=== PATIENT | female | born 1950 | race Caucasian/White ===

== ENCOUNTER 2018-08-31 15:18 | Outpatient (CLI) | payer MEDICARE, OTHER ==
--- NOTE | 2018-09-14 06:09 | Mammography Report ---
Reason: screening mammo Procedure Date: 08/31/2018 Accession Number: [id number] / [id number] Procedure: MGN - Screening Mammo Dig Bilat CPT Code: FULL RESULT: EXAM: Screening Mammo Dig Bilat DATE: 08/31/2018 3:36 PM CLINICAL HISTORY: Screening encounter. Family history of breast cancer in a grandmother at the age of 45. History of benign left breast biopsy. TECHNIQUE: Bilateral CC and MLO views were obtained. COMPARISON: 11/13/2013 through 09/06/2010. FINDINGS: The breasts demonstrate scattered fibroglandular densities bilaterally. Postsurgical changes in the left breast are stable. No suspicious masses, clustered microcalcifications, or regions of architectural distortion are identified. IMPRESSION: Benign findings RECOMMENDATION: Routine annual screening unless otherwise clinically indicated. BIRADS CATEGORY 2: Benign findings STANDARD QUALIFYING STATEMENTS: 1. This examination was reviewed with the aid of Computer-Aided Detection (CAD). 2. A negative or benign imaging report should not preclude biopsy if clinically suspicious findings are present. 3. Dense breasts may obscure an underlying neoplasm. 4. This examination was reviewed without the aid of 3D breast imaging (tomosynthesis).
== END 2018-08-31 15:19 | disposition home or self-care (01) ==
LOC: DI.N 15:18
PROVIDERS: ATTEND Physician Assistant
DX: Z12.31 Encounter for screening mammogram for malignant neoplasm of breast (principal); Z80.3 Family history of malignant neoplasm of breast
CPT/HCPCS: 77067

== ENCOUNTER 2018-12-09 08:19 | Emergency (ER) | payer MEDICARE, OTHER ==
[2018-12-09 08:39] VITALS: BP 141/68
[2018-12-09 09:01] LABS: BILIRUBIN,URINE NEGATIVE (NEGATIVE); GLUCOSE, URINE (UA) NEGATIVE (NEGATIVE); KETONES,URINE (UA) NEGATIVE (NEGATIVE); LEUKOCYTE ESTERASE, URINE LARGE (NEGATIVE); NITRITE,URINE NEGATIVE (NEGATIVE); OCCULT BLOOD,URINE SMALL (NEGATIVE); PROTEIN,URINE NEGATIVE (NEGATIVE); UROBILINOGEN,URINE 0.2 (NORMAL) E.U./dL (NORMAL)
[2018-12-09 09:03] LABS: CLARITY,URINE HAZY (CLEAR)
[2018-12-09 09:09] LABS: BACTERIA,URINE Few /HPF (None Seen); SQUAMOUS EPITHELIAL CELL,UR FEW Squamous (<= Few)
[2018-12-09] MEDS ORDERED: SULFAMETH/TRIMETH DS 800/160 MG TABLET PO STA (09:47)
[2018-12-09] MEDS ORDERED: PHENAZOPYRIDINE 100 MG TABLET PO STA (09:47)
--- NOTE | 2018-12-09 09:59 | ED Physician Documentation ---
PD HPI FEMALE - Stated complaint Stated Complaint: FEMALE - Chief complaint Chief Complaint: General - History obtained from History obtained from: Patient - History of Present Illness Timing - onset: How many weeks ago (1) Timing - duration: Weeks (1) Timing - details: Gradual onset, Still present (not improved with Macrobid) Associated symptoms: Dysuria, Urinary frequency. No: Fever, Back pain Recently seen: Clinic (1 week ago, and Rx Macrobid for UTI. She says she told provider that that has not worked well in past and Cipro or Bactrim have done better. However got Macrobid and is not improved symptoms over the week.) Review of Systems Constitutional: denies: Fever, Chills, Myalgias GI: denies: Nausea, Vomiting : reports: Dysuria, Frequency. denies: Hematuria Musculoskeletal: denies: Back pain PD PAST MEDICAL HISTORY - Past Medical History Past Medical History: No Cardiovascular: None Respiratory: None GI: None : Kidney stones HEENT: None Psych: Depression, Anxiety, Claustrophobia Musculoskeletal: Osteoarthritis, Osteoporosis, Osteopenia Derm: None - Past Surgical History General: Colonoscopy Ortho: Carpal Tunnel surgery /[employer]: Hysterectomy - Present Medications Home Medications: Ambulatory Orders Medication Instructions Recorded Confirmed Acarbose 25 mg PO TIDACHS 03/26/13 03/26/13 Ascorbic Acid [Vitamin C] 500 mg PO DAILY 03/26/13 03/26/13 Aspirin [Aspir 81] 81 mg PO DAILY 03/26/13 03/26/13 Budesonide [Rhinocort Aqua] 1 sprays ONUR DAILY 03/26/13 03/26/13 Cholecalciferol (Vitamin D3) 2,000 unit PO DAILY 03/26/13 03/26/13 [Vitamin D] Estrogens, Conjugated [Premarin] 0.625 mg PO DAILY 03/26/13 03/26/13 Ibandronate Sodium 150 mg PO ONCE 03/26/13 03/26/13 [place]-3 Fatty Acids [Fish Oil] 500 mg PO DAILY 03/26/13 03/26/13 Sertraline [Zoloft] 25 mg PO DAILY 03/26/13 03/26/13 Zinc 50 mg PO DAILY 03/26/13 03/26/13 Phenazopyridine HCl [Pyridium] 200 mg PO TID PRN #9 tablet 12/09/18 Sulfamethox/Trimeth 800/160 1 each PO BID #14 tablet 12/09/18 [Bactrim Ds 800/160] - Allergies Allergies/Adverse Reactions: Allergies Allergy/AdvReac Type Severity Reaction Status Date / Time lidocaine Allergy Intermediate Respiratory Verified 12/09/18 08:39 fluconazole [From Diflucan] Allergy Hives Verified 12/09/18 08:39 - Social History Does the pt smoke?: No Smoking Status: Never smoker Does the pt drink ETOH?: No - Immunizations Immunizations are current?: Yes PD ED PE NORMAL - Vitals Vital signs reviewed: Yes - General General: Alert and oriented X 3, Well developed/nourished - Abdomen Abdomen: Soft, Non tender - Female Female : Deferred - Rectal Rectal: Deferred - Back Back: No CVA TTP - Derm Derm: Normal color - Neuro Neuro: Alert and oriented X 3, No motor deficit, Normal speech Results - Vitals Vitals: Vital Signs - 24 hr 12/09/18 08:37 Temperature 36.5 C Heart Rate 75 Respiratory 14 Rate Blood Pressure 141/68 H O2 Saturation 96 Oxygen O2 Source Room air - Labs Labs: Microbiology 12/09/18 08:49 Urine Culture - Preliminary Urine,Clean Catch CULTURE IN PROGRESS. RESULTS TO FOLLOW. Laboratory Tests 12/09/18 08:49 Urine Color YELLOW Urine Clarity HAZY Urine pH 6.0 Ur Specific [place] 1.015 Urine Protein NEGATIVE Urine Glucose (UA) NEGATIVE Urine Ketones NEGATIVE Urine Occult Blood SMALL H Urine Nitrite NEGATIVE Urine Bilirubin NEGATIVE Urine Urobilinogen 0.2 (NORMAL) Ur Leukocyte Esterase LARGE H Urine RBC 6-10 H Urine WBC >25 H Ur Squamous Epith Cells FEW Squamous Urine Bacteria Few Ur Microscopic Review INDICATED Urine Culture Comments INDICATED PD MEDICAL DECISION MAKING - ED course Complexity details: considered differential (persistent UTI despite Macrobid. Can change to other abx. I don't have availability of culture at this time from private office. ), d/w patient Departure - Departure Disposition: 01 Home, Self Care Clinical Impression: UTI (urinary tract infection) Qualifiers: Urinary tract infection type: acute cystitis Hematuria presence: without hematuria Qualified Code(s): N30.00 - Acute cystitis without hematuria Condition: Stable Record reviewed to determine appropriate education?: Yes Instructions: ED UTI Cystitis Female Follow-Up: Serg,Danette K, PA-C [Primary Care Provider] - Prescriptions: Phenazopyridine HCl [Pyridium] 200 mg PO TID PRN #9 tablet PRN Reason: dysuria Sulfamethox/Trimeth 800/160 [Bactrim Ds 800/160] 1 each PO BID #14 tablet Comments: Your urine still shows signs of infection so it is true your current antibiotic is not working which correlates with your persistent symptoms. Change to Bactrim antibiotic. Use Pyridium also if needed for discomfort. Tylenol or ibuprofen if needed for pains and. Recheck if still not improving over the next few days. Discharge Date/Time: 12/09/18 10:04
== END 2018-12-09 10:04 | disposition home or self-care (01) ==
LOC: ED 08:19
DX: N30.00 Acute cystitis without hematuria (principal)
CPT/HCPCS: 81001; 87086; 99283; A9270; 81003

== ENCOUNTER 2019-02-13 08:00 | Outpatient (CLI) | payer MEDICARE, OTHER ==
[2019-02-13 20:42] LABS: CANDIDA KRUSEI DNA NEGATIVE (NEGATIVE); TRICHOMONAS VAGINALIS DNA NEGATIVE (NEGATIVE)
[2019-02-13 20:43] LABS: CANDIDA GROUP DNA NEGATIVE (NEGATIVE)
== END 2019-02-13 23:59 | disposition home or self-care (01) ==
LOC: LAB.R 08:00
PROVIDERS: ATTEND Nurse Practitioner Obstetrics & Gynecology
DX: R30.0 Dysuria (principal); N95.2 Postmenopausal atrophic vaginitis
CPT/HCPCS: 87086; 87661; 87801

== ENCOUNTER 2019-02-13 08:00 | Outpatient (CLI) | payer MEDICARE, OTHER | END 2019-02-13 23:59 | disposition home or self-care (01) | LOC: LAB.R 08:00 | PROVIDERS: ATTEND Nurse Practitioner Obstetrics & Gynecology | DX: R30.0 Dysuria (principal) | CPT/HCPCS: 87086 ==